=== PATIENT | female | born 1990 | race Caucasian/White ===

== ENCOUNTER 2018-01-26 15:30 | Emergency (ER) | payer MEDICAID, OTHER ==
[2018-01-26 15:31] VITALS: BMI 27.4
[2018-01-26 15:59] VITALS: BP 99/60; PULSE 65; RESP 16; TEMP 98.1; O2SAT 98
[2018-01-26] MEDS ORDERED: PROPARACAINE/FLUORESCEIN SOD 100 DROP/5 ML BOTTLE OS STA (16:07)
--- NOTE | 2018-01-26 16:11 | ED PDOC ---
HPI: Eye Injury/Pain Time Seen by Provider: 01/26/18 15:43 Chief Complaint (Nursing): Eye Problem Chief Complaint (Provider): left eye irritation History Per: Patient History/Exam Limitations: no limitations Onset/Duration Of Symptoms: Days (x1 week) Current Symptoms Are (Timing): Still Present Associated Symptoms: Decreased Vision, Discharge From Eye (clear) Additional Complaint(s): Emma Wahl is a 27 year old female, with a past medical history of Hepatitis C, who presents to the emergency department complaining of a left eye irritation associated with light sensitivity onset for x1 week. Patient states she has difficulty opening the eye and reports a clear discharge and vision change. She denies any injuries or other medical complaints. Of note patient has a history of opioid abuse disorder. PMD: None provided. Past Medical History Reviewed: Historical Data, Nursing Documentation, Vital Signs Vital Signs: Last Vital Signs Temp 98.1 F 01/26/18 15:57 Pulse 65 01/26/18 15:57 Resp 16 01/26/18 15:57 BP 99/60 L 01/26/18 15:57 Pulse Ox 98 01/26/18 15:57 - Medical History PMH: Hepatitis (C) Denies: Diabetes, HIV, HTN, Seizures, Sexually Transmitted Disease - Surgical History Surgical History: No Surg Hx - Family History Family History: States: Unknown Family Hx - Social History Current smoker - smoking cessation education provided: Yes (Heavy smoker >10 cigarettes daily ) Alcohol: None Drugs: Opiates - Immunization History Hx Tetanus Toxoid Vaccination: No Hx Influenza Vaccination: No Hx Pneumococcal Vaccination: No - Home Medications Home Medications: Ambulatory Orders Medication Instructions Recorded Gentamicin 0.1% 0.1 / TP BID #1 tube 01/26/18 - Allergies Allergies/Adverse Reactions: Allergies Allergy/AdvReac Type Severity Reaction Status Date / Time No Known Allergies Allergy Unverified 12/01/17 20:03 Review of Systems ROS Statement: Except As Marked, All Systems Reviewed And Found Negative Eyes: Positive for: Vision Change (left eye), Redness (left eye) Physical Exam - Reviewed Nursing Documentation Reviewed: Yes Vital Signs Reviewed: Yes - Physical Exam Appears: Positive for: Non-toxic Head Exam: Positive for: ATRAUMATIC, NORMOCEPHALIC Skin: Positive for: Normal Color, Warm, Dry Eye Exam: Positive for: Normal appearance, EOMI, PERRL, Other (Movable film over her left eye. No corneal abrasion) Neck: Positive for: Painless ROM Respiratory: Negative for: Respiratory Distress Extremity: Positive for: Normal ROM (upper and lowr extremities). Negative for : Deformity, Swelling Neurologic/Psych: Positive for: Alert, Oriented - ECG O2 Sat by Pulse Oximetry: 98 (RA) Pulse Ox Interpretation: Normal Medical Decision Making Medical Decision Making: Time: 15:43 Initial Impression: Initial Plan: --Flucaine Eye Drops 2 Drop OS --Reevaluation Scribe Attestation: Documented by Rufus Spears, acting as a scribe for Celena Barrera PA-C Provider Scribe Attestation: All medical record entries made by the Scribe were at my direction and personally dictated by me. I have reviewed the chart and agree that the record accurately reflects my personal performance of the history, physical exam, medical decision making, and the department course for this patient. I have also personally directed, reviewed, and agree with the discharge instructions and disposition. Disposition - Clinical Impression Clinical Impression: Conjunctivitis - Disposition Referrals: Stevenson Rodriguez MD [Staff Provider] - Disposition: Routine/Home Disposition Time: 16:40 Condition: STABLE Additional Instructions: Please follow-up with blind eyeletter in 1-2 days. Prescriptions: Gentamicin 0.1% 0.1 / TP BID #1 tube Instructions: Conjunctivitis ([place]) Forms: [facility] ([place])
== END 2018-01-26 16:45 | disposition home or self-care (01) ==
LOC: H.ER 15:30
DX: H10.9 Unspecified conjunctivitis (principal); F17.210 Nicotine dependence, cigarettes, uncomplicated